=== PATIENT | male | born 1965 | race Caucasian/White ===

== ENCOUNTER 2024-04-13 19:07 | Emergency (ER) | payer OTHER, MEDICAID ==
[~2024-04-13] VITALS: Ht 172.7 cm; Wt 77.1 kg
[2024-04-13] MEDS ORDERED: LIDOCAINE 5% (PATCH) 1 EA PATCH TP ONE (20:06)
[2024-04-13] MEDS ORDERED: KETOROLAC TROMETHAMINE 15 MG/ML VIAL ONE (20:06)
[2024-04-13] MEDS ORDERED: CYCLOBENZAPRINE 10 MG TABLET ONE (20:07)
[2024-04-13] MEDS ORDERED: ACETAMINOPHEN ES 500 MG TABLET ONE (20:07)
[2024-04-13] MEDS: KETOROLAC TROMETHAMINE 15 MG/ML VIAL IM ONE (20:12)
[2024-04-13] MEDS: LIDOCAINE 5% (PATCH) 1 EA PATCH TP ONE (20:12)
[2024-04-13] MEDS: ACETAMINOPHEN ES 500 MG TABLET PO ONE (20:12)
[2024-04-13] MEDS: CYCLOBENZAPRINE 10 MG TABLET PO ONE (20:12)
[2024-04-13] MEDS ORDERED: CYCL5TAB PO (21:09)
[2024-04-13] MEDS ORDERED: ACET-2605 PO (21:09)
[2024-04-13] MEDS ORDERED: dexaMETHasone SOD PHOSPHATE 4 MG/ML VIAL ONE (21:11)
[2024-04-13] MEDS: dexaMETHasone SOD PHOSPHATE 4 MG/ML VIAL IM ONE (21:12)
[2024-04-13 21:17] VITALS: BP 128/79; TEMP 98; O2SAT 99
== END 2024-04-13 21:18 | disposition home or self-care (01) ==
LOC: ER 19:10
DX: M54.50 Low back pain, unspecified (principal); Z79.899 Other long term (current) drug therapy
CPT/HCPCS: 99284; 96372 ×2; J1100; J1885

== ENCOUNTER 2024-05-19 19:57 | Emergency (ER) | payer OTHER, MEDICAID ==
[~2024-05-19] VITALS: Ht 162.6 cm; Wt 64.0 kg
[~2024-05-19 19:57] MED LIST: ACET-2605 PO; CYCL5TAB PO
[2024-05-19 21:18] VITALS: BP 141/71; TEMP 98; O2SAT 95
== END 2024-05-19 22:17 | disposition home or self-care (01) ==
LOC: ER 20:13
DX: R13.19 Other dysphagia (principal); I10 Essential (primary) hypertension; E11.9 Type 2 diabetes mellitus without complications; E78.5 Hyperlipidemia, unspecified; Z87.19 Personal history of other diseases of the digestive system

== ENCOUNTER 2024-10-26 08:58 | Emergency (ER) | payer MEDICARE, MEDICAID ==
[~2024-10-26] VITALS: Ht 170.2 cm; Wt 64.4 kg
[2024-10-26 09:03] VITALS: BP 136/83; TEMP 98.2
[2024-10-26 10:01] VITALS: O2SAT 99
== END 2024-10-26 10:01 | disposition home or self-care (01) ==
LOC: ER 08:58
DX: R10.13 Epigastric pain (principal); E11.9 Type 2 diabetes mellitus without complications; F41.9 Anxiety disorder, unspecified; Z87.19 Personal history of other diseases of the digestive system

== ENCOUNTER 2024-11-25 15:46 | Emergency (ER) | payer MEDICARE, MEDICAID ==
[~2024-11-25] VITALS: Ht 170.2 cm; Wt 59.0 kg
[2024-11-25 17:20] LABS: BASOPHILS % (AUTO) 0.5 % (0.0-2.0); EOSINOPHILS # (AUTO) 0.1 K/uL (0.0-0.7); EOSINOPHILS % (AUTO) 1.1 % (0.0-6.0); HEMATOCRIT 35 % (39-51); HEMOGLOBIN 12.1 g/dL (13.5-17.5); LYMPHOCYTES # (AUTO) 1.2 K/uL (0.8-4.8); LYMPHOCYTES % (AUTO) 20.5 % (20.0-44.0); MEAN CORPUSCULAR HEMOGLOBIN 31 PG (26.0-33.0); MEAN CORPUSCULAR HGB CONC 35 g/dl (31.0-36.0); MEAN CORPUSCULAR VOLUME 89 fL (80-96); MONOCYTES # (AUTO) 0.7 K/uL (0.1-1.30); MONOCYTES % (AUTO) 10.9 % (2.0-12.0); NEUTROPHILS # (AUTO) 4.1 K/uL (1.8-8.9); PLATELET COUNT (AUTO) 240 K/uL (150-450); RED BLOOD CELL COUNT(AUTO) 3.91 MIL/uL (4.5-6.0); RED CELL DISTRIBUTION WIDTH 13.3 % (11.5-15.0); WHITE BLOOD COUNT (AUTO) 6.1 K/uL (4.3-11.0)
[2024-11-25 17:36] LABS: CALCIUM, SERUM 8.6 mg/dL (8.5-10.1); CREATININE 0.7 mg/dL (0.6-1.3); POTASSIUM 4.1 mmol/L (3.5-5.1)
[2024-11-25 17:42] LABS: ALBUMIN 3.3 g/dL (3.4-5.0); BILIRUBIN,DIRECT 0.2 mg/dL (0.0-0.2); BILIRUBIN,TOTAL 0.6 mg/dL (0.2-1.0); TOTAL PROTEIN, SERUM 6.7 g/dL (6.4-8.2)
[2024-11-25 18:19] LABS: APPEARANCE,URINE SLIGHTLY CLOUDY (CLEAR); BILIRUBIN,URINE NEGATIVE (NEGATIVE); BLOOD, URINE TRACE-INTA Ery/uL (NEGATIVE); COLOR,URINE YELLOW (YELLOW); KETONES,URINE NEGATIVE (NEGATIVE); LEUKOCYTE ESTERASE ,URINE 1+ (NEGATIVE); NITRITE, URINE NEGATIVE (NEGATIVE); PROTEIN,URINE NEGATIVE (NEGATIVE); UGLUCOSE 3+ mg/dL (NEGATIVE); UROBILINOGEN,URINE 0.2 EU/dL (0.2)
[2024-11-25 18:51] VITALS: BP 140/76; TEMP 98.3; O2SAT 98
[2024-11-25 19:05] LABS: ADD URINE CULTURE YES; BACTERIA,URINE Few /HPF (None Seen); RBC,URINE 0-3 /HPF (0-2); SQUAMOUS EPITHELIAL CELL,UR Few /HPF (None Seen); WBC,URINE 21-50 /HPF (0-3)
== END 2024-12-01 10:16 | disposition home or self-care (01) ==
LOC: ER 15:59 → EDBD 15:59 → ER 12-01 10:16
DX: R19.7 Diarrhea, unspecified (principal); R10.9 Unspecified abdominal pain; E11.9 Type 2 diabetes mellitus without complications; I10 Essential (primary) hypertension
CPT/HCPCS: 36415; 80048-TC; 80076-TC; 81001; 83690-TC; 85025-TC; 87086-TC